=== PATIENT | male | born 1965 | race Caucasian/White ===

== ENCOUNTER → 2023-07-22 16:54 | Outpatient (REF) | payer OTHER, SELFPAY | LOC: RCS 16:54 | PROVIDERS: ATTENDING PHYSICIAN Internal Medicine Cardiovascular Disease; FAMILY PHYSICIAN Family Medicine | DX: I10 Essential (primary) hypertension (principal); E78.2 Mixed hyperlipidemia; I25.10 Atherosclerotic heart disease of native coronary artery without angina pectoris | CPT/HCPCS: 93306 ==